=== PATIENT | female | born 2000 | race Two or more races ===

== ENCOUNTER → 2025-02-20 | Outpatient (CLI) | payer BC, SELFPAY ==
[2025-02-20 17:50] LABS: Beta HCG,Quantitative < 1 mIU/mL (<5.0)
== END | disposition home or self-care (01) ==
LOC: COPL 16:28
PROVIDERS: PCP Physician Assistant; Referring Provider Nurse Practitioner Primary Care; Visit Provider Nurse Practitioner Primary Care
DX: Z32.00 Encounter for pregnancy test, result unknown (principal)
CPT/HCPCS: 36415; 84702

== ENCOUNTER → 2025-03-30 | Outpatient (CLI) | payer BC, SELFPAY ==
--- NOTE | 2025-03-30 14:00 | XR_ITS ---
Examination: Pelvic ultrasound, transabdominal, complete Technique: Transabdominal ultrasound of the pelvis performed using grayscale imaging Date and time of exam: 06/30/2025 1405 hours INDICATIONS: Status post miscarriage February 13, 2025 with pelvic pain FINDINGS: Uterus 8.0 cm endometrial stripe 0.3 cm No uterine mass or intrauterine gestation Right ovary 2.9 cm arterial flow small follicles Left ovary 3.3 cm 21 x 19 mm cyst IMPRESSION: No uterine mass or intrauterine gestation
== END | disposition home or self-care (01) ==
LOC: CDIM 13:46
PROVIDERS: PCP Physician Assistant; Referring Provider Nurse Practitioner Primary Care; Visit Provider Nurse Practitioner Primary Care
DX: O03.9 Complete or unspecified spontaneous abortion without complication (principal)
CPT/HCPCS: 76856